=== PATIENT | female | born 1940 | race African-American/Black ===

== ENCOUNTER 2018-03-20 19:35 | Emergency (ER) | payer OTHER, MEDICAID ==
[~2018-03-20] VITALS: Ht 160 cm; Wt 52.0 kg
[~2018-03-20 19:35] MED LIST: ASPI-1158; ATOR20TA65; GABA300C; GLIP10TA10; METF-517; PENT400T11; PIOG15TA66
[2018-03-20] MEDS ORDERED: SODIUM CHLORIDE 0.9% 1,000 ML IV ONE (20:21)
[2018-03-20] MEDS ORDERED: KETOROLAC 30MG/ML VIAL IV STA (20:21)
[2018-03-20 20:53] LABS: BASOPHILS % 0.6 % (0.0-2.0); EOSINOPHILS % 1.1 % (0.0-5.0); HEMATOCRIT. 32.3 % (36.0-48.0); HEMOGLOBIN. 10.7 g/dL (12.0-16.0); LYMPHOCYTES % 28.1 % (20.0-50.0); MEAN CORPUSCULAR HEMOGLOBIN 28.6 pg (28.0-32.0); MEAN CORPUSCULAR VOLUME 85.9 fL (81.0-99.0); MEAN PLATELET VOLUME 8.5 fl (7.4-10.4); MONOCYTES % 9.6 % (2.0-8.0); NEUTROPHILS % 60.6 % (40.0-76.0); PLATELET 322 x1000/uL (130-400); RED BLOOD CELL COUNT 3.75 mill/uL (4.2-5.4); RED CELL DISTRIBUTION WIDTH 13.3 % (11.6-14.6)
[2018-03-20 20:56] LABS: CHLORIDE 99 mEq/L (98-107)
[2018-03-20 22:17] VITALS: BP 15/74
== END 2018-03-20 22:38 | disposition home or self-care (01) ==
LOC: ER 19:35
DX: E11.65 Type 2 diabetes mellitus with hyperglycemia (principal); R51 Headache; Z87.891 Personal history of nicotine dependence; Z90.710 Acquired absence of both cervix and uterus; Z79.899 Other long term (current) drug therapy
CPT/HCPCS: 36415; 80053; 82962; 85025; 96361; 96374; 99283; J1885; J7030

== ENCOUNTER 2018-06-10 19:47 | Emergency (ER) | payer OTHER, MEDICAID ==
[~2018-06-10] VITALS: Ht 160 cm; Wt 53.0 kg
[2018-06-10] MEDS ORDERED: KETOROLAC 60MG/2ML VIAL IM ONE (22:00)
[2018-06-10 23:20] VITALS: BP 138/77
== END 2018-06-10 23:23 | disposition home or self-care (01) ==
LOC: ER 19:47
DX: M19.011 Primary osteoarthritis, right shoulder (principal); E11.9 Type 2 diabetes mellitus without complications; I10 Essential (primary) hypertension; E78.00 Pure hypercholesterolemia, unspecified; Z90.710 Acquired absence of both cervix and uterus; Z79.899 Other long term (current) drug therapy
CPT/HCPCS: 73030; 82962; 96372; 99283; J1885

== ENCOUNTER 2018-08-03 18:55 | Emergency (ER) | payer OTHER, MEDICAID ==
[~2018-08-03] VITALS: Ht 160 cm; Wt 55.0 kg
[2018-08-03 23:28] LABS: CLARITY URINE CLEAR (CLEAR); COLOR URINE YELLOW (YELLOW); KETONES URINE NEGATIVE (NEGATIVE); LEUKOCYTE ESTERASE URINE 2+ (NEGATIVE); NITRITE URINE NEGATIVE (NEGATIVE); OCCULT BLOOD URINE TRACE (NEGATIVE); PH URINE 5.5 (4.5-8.0); PROTEIN URINE TRACE (NEGATIVE); SPECIFIC GRAVITY URINE 1.024 (1.005-1.030); UROBILINOGEN URINE 0.2 E.U./dL (0.2-1.0)
[2018-08-04] MEDS ORDERED: INSULIN LISPRO 100 UNITS/ML SUBCUT ONE (00:30)
[2018-08-04 00:38] VITALS: BP 125/81
== END 2018-08-04 00:42 | disposition home or self-care (01) ==
LOC: ER 18:55
DX: N39.0 Urinary tract infection, site not specified (principal); N95.2 Postmenopausal atrophic vaginitis; I10 Essential (primary) hypertension; E11.9 Type 2 diabetes mellitus without complications; Z79.899 Other long term (current) drug therapy; Z79.84 Long term (current) use of oral hypoglycemic drugs
CPT/HCPCS: 81003; 82962; 87086; 96372; 99283; J1815

== ENCOUNTER 2019-01-03 19:31 | Emergency (ER) | payer OTHER, MEDICAID ==
[~2019-01-03] VITALS: Ht 157.5 cm; Wt 51.0 kg
[~2019-01-03 19:31] MED LIST changes: -PENT400T11; +PENT400T16
[2019-01-04] MEDS ORDERED: HYDROCODONE/ACETAMINOPHEN 5/325MG TABLET PO ONE (00:45)
[2019-01-04 04:49] VITALS: BP 139/61
== END 2019-01-04 04:50 | disposition home or self-care (01) ==
LOC: ER 19:31
DX: M25.511 Pain in right shoulder (principal); E11.9 Type 2 diabetes mellitus without complications
CPT/HCPCS: 73030; 82962; 99283

== ENCOUNTER 2023-06-20 14:54 | Emergency (ER) | payer MEDICARE, MEDICAID ==
[~2023-06-20] VITALS: Ht 170.2 cm; Wt 60.0 kg
[~2023-06-20 14:54] MED LIST changes: -ASPI-1158; +ASPI-1406; -METF-517; +METF-817
[2023-06-20 15:06] VITALS: O2SAT 98
[2023-06-20 16:05] LABS: HEMATOCRIT 35.5 % (36.0-48.0); HEMOGLOBIN 11.7 g/dL (12.0-16.0); MEAN CORPUSCULAR HEMOGLOBIN 28.7 pg (28.0-32.0); MEAN CORPUSCULAR HGB CONC 32.9 g/dL (31.0-37.0); MEAN CORPUSCULAR VOLUME 87.1 fL (81.0-99.0); RED BLOOD CELL COUNT 4.07 mill/uL (4.2-5.4); RED CELL DISTRIBUTION WIDTH 14.7 % (11.6-14.6); WHITE BLOOD COUNT 12.5 x1000/uL (4.5-11.0)
[2023-06-20 16:20] LABS: ALANINE AMINOTRANSFERASE 13 IU/L (10-49); ASPARTATE AMINOTRANSFERASE 23 IU/L (<34); BILIRUBIN TOTAL 0.3 mg/dL (0.1-1.0); CALCIUM 9.6 mg/dL (8.7-10.4); CARBON DIOXIDE 26 mEq/L (21-32); CHLORIDE 106 mEq/L (98-107); CREATININE 1.1 mg/dL (0.6-1.0); GLUCOSE 68 mg/dL (70-105); POTASSIUM 4.1 mEq/L (3.5-5.1); PROTEIN TOTAL 8.1 g/dL (6.0-8.3); SODIUM 139 mEq/L (136-145); UREA NITROGEN BLOOD 23 mg/dL (9-23)
[2023-06-20 16:21] LABS: PLATELET 164 x1000/uL (130-400)
[2023-06-20 21:18] VITALS: BP 160/89; PULSE 90; RESP 16; TEMP 98.7
[2023-06-20] MEDS ORDERED: IOHEXOL-300 100 ML BOTTLE ONE (23:16)
== END 2023-06-20 21:20 | disposition home or self-care (01) ==
LOC: ER 15:22
DX: M19.011 Primary osteoarthritis, right shoulder (principal); R91.1 Solitary pulmonary nodule; K44.9 Diaphragmatic hernia without obstruction or gangrene; F03.90 Unspecified dementia, unspecified severity, without behavioral disturbance, psychotic disturbance, mood disturbance, and anxiety; E11.9 Type 2 diabetes mellitus without complications; F17.200 Nicotine dependence, unspecified, uncomplicated
CPT/HCPCS: 99285; 70491; 80053; 85027; 36415; 71260; Q9967